=== PATIENT | female | born 1995 | race American Indian/Alaskan Native ===

== ENCOUNTER 2021-01-21 10:21 | Emergency (ER) | payer SELFPAY ==
[2021-01-21] MEDS ORDERED: ONDANSETRON 4 MG/2 ML INJ ONE (10:23)
[2021-01-21] MEDS ORDERED: SODIUM CHLORIDE 0.9% 1000 ML 1,000 ML IV ONE ×2 (10:23→14:03)
[2021-01-21] MEDS ORDERED: ONDANSETRON 4 MG/2 ML INJ IV ONE ×2 (10:24→14:02)
[2021-01-21] MEDS ORDERED: LORazepam 2 MG/ML VIAL IV ONE (10:32)
--- NOTE | 2021-01-21 10:36 | Emergency Department Report ---
HPI - General Time Seen by Provider: 01/21/21 10:22 - HPI HPI: 25-year-old -Iranian female presents to the emergency department via EMS from home after a suspected overdose and suicide attempt. Patient came home around 3 in the morning last night and told her mom that she "did not want to be here anymore." Mom did not think much about it at the time but the patient was found unresponsive this morning. There was an Altoids container that had small blue pills consistent with Percocet, but it is unknown how much of this medication she may have taken. Apparently there was also some Tylenol with codeine available. Initially the patient was completely unresponsive, GCS of 3, with respiratory depression. She received 1 mg of Narcan that initially helped with the respiratory depression and the patient became awake and agitated just prior to pulling up into the ambulance bay. At this time the patient is very emotional, having nausea with vomiting, complaining of ringing in the ears. Patient denies knowing what she ingested. I had a long conversation with the patient's mother. She does state that the patient came home around 3 AM and was saying that "I have failed this life" and "I do not want to be here anymore." Patient was very tearful. Mom says that the patient has not been doing well with the pandemic as she has not been able to hold down a job and lost her home and "she had to move back in with [facility]." Patient has made the same comments before about failing life and not wanting to be here anymore. She is supposed to see a psychiatrist or therapist on the due to this recent depression, but the patient has never been diagnosed with anything psychiatrically. Mom spoke with her niece, whom the patient went out with last night, and apparently the patient was given some type of mushrooms to ingest. I asked about the possibility of an overdose on Percocet but apparently the patient is allergic to Percocet as it causes hives. Mom had no idea what the small blue pills that EMS mentioned might have been. ED Review of Systems ROS: Stated complaint: OVERDOSE Other details as noted in HPI Comment: Unobtainable due to pts medical conditions ENT: other (ringing in ears) Gastrointestinal: nausea, vomiting Physical Exam - Physical Exam Physical Exam: GENERAL: The patient is ill-appearing and actively retching. HENT: Normocephalic. Atraumatic. Patient has moist mucous membranes. EYES: Extraocular motions are intact. NECK: Supple. Trachea is midline. CHEST/LUNGS: Clear to auscultation. There is no respiratory distress noted. HEART/CARDIOVASCULAR: Regular. There is mild to moderate tachycardia. There is no murmur. ABDOMEN: Abdomen is soft, nontender. Patient has normal bowel sounds. SKIN: Skin is warm and dry. NEURO: The patient is awake, but confused. Normal speech. MUSCULOSKELETAL: There is no tenderness or deformity. There is no limitation range of motion. ED Course - Reevaluation(s) Reevaluation #1: 01/21/21 16:00 After the patient had a dose of Ativan and was given time to calm down she appears improved and much more stable. She was also given antiemetics and the patient has stopped vomiting/retching. The patient is no longer agitated and yelling out. She does not appear to have any focal, motor or sensory deficits and her cranial nerves are intact. The patient admits that she ingested multiple Roxicodone as a suicide attempt. She denies what her mother had said about ingesting mushrooms and says that she may have had an edible. ED Medical Decision Making - Lab Data Result diagrams: 01/21/21 10:01/21/21 10: Lab Results 01/21/21 01/21/21 01/21/21 Range/Units 10: 10: 10:26 WBC 18.6 H (4.5-11.0) K/mm3 RBC 4.33 (3.65-5.03) M/mm3 Hgb 12.8 (10.1-14.3) gm/dl Hct 40.1 (30.3-42.9) % MCV 93 (79-97) fl MCH 30 (28-32) pg MCHC 32 (30-34) % RDW 14.3 (13.2-15.2) % Plt Count 399 (140-440) K/mm3 Lymph % (Auto) 20.7 (13.4-35.0) % [place] % (Auto) 5.7 (0.0-7.3) % Eos % (Auto) 0.5 (0.0-4.3) % Baso % (Auto) 0.3 (0.0-1.8) % Lymph # (Auto) 3.8 (1.2-5.4) K/mm3 [place] # (Auto) 1.1 H (0.0-0.8) K/mm3 Eos # (Auto) 0.1 (0.0-0.4) K/mm3 Baso # (Auto) 0.1 (0.0-0.1) K/mm3 Seg Neutrophils % 72.8 H (40.0-70.0) % Seg Neutrophils # 13.5 H (1.8-7.7) K/mm3 Sodium 141 (137-145) mmol/L Potassium 3.5 L (3.6-5.0) mmol/L Chloride 102.7 (98-107) mmol/L Carbon Dioxide 18 L (22-30) mmol/L Anion Gap 24 mmol/L BUN 10 (7-17) mg/dL Creatinine 1.1 (0.6-1.2) mg/dL Estimated GFR 60 ml/min BUN/Creatinine Ratio 9 % Glucose 73 (65-100) mg/dL Calcium 9.0 (8.4-10.2) mg/dL Total Bilirubin < 0.20 (0.1-1.2) mg/dL AST 25 (5-40) units/L ALT 26 (7-56) units/L Alkaline Phosphatase 72 (35-129) units/L Total Protein 7.5 (6.3-8.2) g/dL Albumin 4.4 (3.9-5) g/dL Albumin/Globulin Ratio 1.4 % HCG, Qual (Negative) Urine Color (Yellow) Urine Turbidity (Clear) Urine pH (5.0-7.0) Ur Specific [place] (1.003-1.030) Urine Protein (Negative) mg/dL Urine Glucose (UA) (Negative) mg/dL Urine Ketones (Negative) mg/dL Urine Blood (Negative) Urine Nitrite (Negative) Urine Bilirubin (Negative) Urine Urobilinogen (<2.0) mg/dL Ur Leukocyte Esterase (Negative) Urine WBC (Auto) (0.0-6.0) /HPF Urine RBC (Auto) (0.0-6.0) /HPF U Epithel Cells (Auto) (0-13.0) /HPF Salicylates < 0.3 L (2.8-20.0) mg/dL Urine Opiates Screen Urine Methadone Screen Acetaminophen (10.0-30.0) ug/mL Ur Barbiturates Screen Ur Phencyclidine Scrn Ur Amphetamines Screen U Benzodiazepines Scrn Urine Cocaine Screen U Marijuana (THC) Screen Plasma/Serum Alcohol (0-0.07) % 01/21/21 01/21/21 01/21/21 Range/Units 10:26 10:26 10:26 WBC (4.5-11.0) K/mm3 RBC (3.65-5.03) M/mm3 Hgb (10.1-14.3) gm/dl Hct (30.3-42.9) % MCV (79-97) fl MCH (28-32) pg MCHC (30-34) % RDW (13.2-15.2) % Plt Count (140-440) K/mm3 Lymph % (Auto) (13.4-35.0) % [place] % (Auto) (0.0-7.3) % Eos % (Auto) (0.0-4.3) % Baso % (Auto) (0.0-1.8) % Lymph # (Auto) (1.2-5.4) K/mm3 [place] # (Auto) (0.0-0.8) K/mm3 Eos # (Auto) (0.0-0.4) K/mm3 Baso # (Auto) (0.0-0.1) K/mm3 Seg Neutrophils % (40.0-70.0) % Seg Neutrophils # (1.8-7.7) K/mm3 Sodium (137-145) mmol/L Potassium (3.6-5.0) mmol/L Chloride (98-107) mmol/L Carbon Dioxide (22-30) mmol/L Anion Gap mmol/L BUN (7-17) mg/dL Creatinine (0.6-1.2) mg/dL Estimated GFR ml/min BUN/Creatinine Ratio % Glucose (65-100) mg/dL Calcium (8.4-10.2) mg/dL Total Bilirubin (0.1-1.2) mg/dL AST (5-40) units/L ALT (7-56) units/L Alkaline Phosphatase (35-129) units/L Total Protein (6.3-8.2) g/dL Albumin (3.9-5) g/dL Albumin/Globulin Ratio % HCG, Qual Negative (Negative) Urine Color (Yellow) Urine Turbidity (Clear) Urine pH (5.0-7.0) Ur Specific [place] (1.003-1.030) Urine Protein (Negative) mg/dL Urine Glucose (UA) (Negative) mg/dL Urine Ketones (Negative) mg/dL Urine Blood (Negative) Urine Nitrite (Negative) Urine Bilirubin (Negative) Urine Urobilinogen (<2.0) mg/dL Ur Leukocyte Esterase (Negative) Urine WBC (Auto) (0.0-6.0) /HPF Urine RBC (Auto) (0.0-6.0) /HPF U Epithel Cells (Auto) (0-13.0) /HPF Salicylates (2.8-20.0) mg/dL Urine Opiates Screen Urine Methadone Screen Acetaminophen 6.5 L (10.0-30.0) ug/mL Ur Barbiturates Screen Ur Phencyclidine Scrn Ur Amphetamines Screen U Benzodiazepines Scrn Urine Cocaine Screen U Marijuana (THC) Screen Plasma/Serum Alcohol 0.12 H (0-0.07) % 01/21/21 01/21/21 Range/Units Unknown Unknown WBC (4.5-11.0) K/mm3 RBC (3.65-5.03) M/mm3 Hgb (10.1-14.3) gm/dl Hct (30.3-42.9) % MCV (79-97) fl MCH (28-32) pg MCHC (30-34) % RDW (13.2-15.2) % Plt Count (140-440) K/mm3 Lymph % (Auto) (13.4-35.0) % [place] % (Auto) (0.0-7.3) % Eos % (Auto) (0.0-4.3) % Baso % (Auto) (0.0-1.8) % Lymph # (Auto) (1.2-5.4) K/mm3 [place] # (Auto) (0.0-0.8) K/mm3 Eos # (Auto) (0.0-0.4) K/mm3 Baso # (Auto) (0.0-0.1) K/mm3 Seg Neutrophils % (40.0-70.0) % Seg Neutrophils # (1.8-7.7) K/mm3 Sodium (137-145) mmol/L Potassium (3.6-5.0) mmol/L Chloride (98-107) mmol/L Carbon Dioxide (22-30) mmol/L Anion Gap mmol/L BUN (7-17) mg/dL Creatinine (0.6-1.2) mg/dL Estimated GFR ml/min BUN/Creatinine Ratio % Glucose (65-100) mg/dL Calcium (8.4-10.2) mg/dL Total Bilirubin (0.1-1.2) mg/dL AST (5-40) units/L ALT (7-56) units/L Alkaline Phosphatase (35-129) units/L Total Protein (6.3-8.2) g/dL Albumin (3.9-5) g/dL Albumin/Globulin Ratio % HCG, Qual (Negative) Urine Color Yellow (Yellow) Urine Turbidity Clear (Clear) Urine pH 5.0 (5.0-7.0) Ur Specific [place] 1.015 (1.003-1.030) Urine Protein <15 mg/dl (Negative) mg/dL Urine Glucose (UA) Neg (Negative) mg/dL Urine Ketones Tr (Negative) mg/dL Urine Blood Lg (Negative) Urine Nitrite Neg (Negative) Urine Bilirubin Neg (Negative) Urine Urobilinogen < 2.0 (<2.0) mg/dL Ur Leukocyte Esterase Neg (Negative) Urine WBC (Auto) 1.0 (0.0-6.0) /HPF Urine RBC (Auto) 1.0 (0.0-6.0) /HPF U Epithel Cells (Auto) 1.0 (0-13.0) /HPF Salicylates (2.8-20.0) mg/dL Urine Opiates Screen Negative Urine Methadone Screen Negative Acetaminophen (10.0-30.0) ug/mL Ur Barbiturates Screen Negative Ur Phencyclidine Scrn Negative Ur Amphetamines Screen Negative U Benzodiazepines Scrn Negative Urine Cocaine Screen Negative U Marijuana (THC) Screen Negative Plasma/Serum Alcohol (0-0.07) % - Medical Decision Making Patient initially presented as a possible OD. Initially she did not have response to Narcan but became awake, but confused and agitated upon arrival to the emergency department. The patient was also actively retching. Patient was given some Ativan and antiemetics. She was given some IV fluid resuscitation. The patient became much more awake, alert, oriented. She does admit to suicidal ideations and an attempt and therefore the patient was made an ED hold and placed on a 1013. Patient's labs have been mostly unremarkable except for a mild leukocytosis of 18,000. No source of infection seen at this time. Surprisingly UDS negative for marijuana and opiates. The patient initially had some tachycardia but that has since resolved with resolution of the patient's agitation and some IV fluid resuscitation. The patient has a urinary tract infection she may need antibiotics, but otherwise the patient is medically clear ed for psychiatric placement. Critical Care Time: No Critical care attestation.: If time is entered above; I have spent that time in minutes in the direct care of this critically ill patient, excluding procedure time. ED Disposition Clinical Impression: Suicidal ideations Suicide attempt by substance overdose Qualifiers: Encounter type: initial encounter Qualified Code(s): T65.92XA - Toxic effect of unspecified substance, intentional self-harm, initial encounter Opiate overdose Qualifiers: Encounter type: initial encounter Injury intent: intentional self-harm Qualified Code(s): T40.602A - Poisoning by unspecified narcotics, intentional self-harm, initial encounter Disposition: [address] [place] [address] HOSPITAL Is pt being admited?: No Referrals: PRIMARY CARE, [Primary Care Provider] - 3-5 Days Time of Disposition: 16:04
[2021-01-21 10:51] LABS: Basophils # (Auto) 0.1 K/mm3 (0.0-0.1); Basophils % (Auto) 0.3 % (0.0-1.8); Eosinophils # (Auto) 0.1 K/mm3 (0.0-0.4); Eosinophils % (Auto) 0.5 % (0.0-4.3); Hemoglobin 12.8 gm/dl (10.1-14.3); Lymphocytes # (Auto) 3.8 K/mm3 (1.2-5.4); Lymphocytes % (Auto) 20.7 % (13.4-35.0); Monocytes # (Auto) 1.1 K/mm3 (0.0-0.8); Monocytes % (Auto) 5.7 % (0.0-7.3)
[2021-01-21 11:14] LABS: Alanine Aminotransferase 26 units/L (7-56); Albumin 4.4 g/dL (3.9-5); BUN/Creatinine Ratio 9; Blood Urea Nitrogen 10 mg/dL (7-17); Hemolysis Index 10
[2021-01-21 11:20] LABS: Hematocrit 40.1 % (30.3-42.9); Mean Corpuscular HGB Conc 32 % (30-34); Mean Corpuscular Volume 93 fl (79-97); Platelet Count 399 K/mm3 (140-440); Red Blood Count 4.33 M/mm3 (3.65-5.03); Red Cell Distribution Width 14.3 % (13.2-15.2)
[2021-01-21] MEDS ORDERED: LORazepam 2 MG/ML VIAL IV NR (14:00)
[2021-01-21 15:52] LABS: Bilirubin,Urine NEG (Negative); Blood,Urine LG (Negative); Color,Urine Yellow (Yellow); Protein,Urine <15 mg/dL mg/dL (Negative); Urobilinogen,Urine < 2.0 mg/dL (<2.0)
[2021-01-21 16:00] LABS: Amphetamine Screen,Urine Negative; Benzodiazepines Screen,Urine Negative; Cannabinoid Screen,Urine Negative; Cocaine Screen,Urine Negative; Methadone Screen,Urine Negative; Opiate Screen,Urine Negative
[2021-01-21 19:37] LABS: Hematocrit 35.3 % (30.3-42.9); Hemoglobin 11.4 gm/dl (10.1-14.3); Mean Corpuscular HGB Conc 32 % (30-34); Mean Corpuscular Volume 92 fl (79-97); Platelet Count 319 K/mm3 (140-440); Red Blood Count 3.85 M/mm3 (3.65-5.03); Red Cell Distribution Width 14.1 % (13.2-15.2)
--- NOTE | 2021-01-22 10:26 | Electrocardiograph Report ---
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
--- NOTE | 2021-01-22 10:39 | Consultation ---
History of Present Illness - Reason for Consult Consult date: 01/22/21 Reason for consult: OD - History of Present Psychiatric Illness Diann Stallings is a 25y/o female patient who states she was brought to the hospital because "my mom states I was unresponsive." When asking why was she unresponsive, the patient replies "I took a bunch of pills. I didn't want to feel anything." She is calm, cooperative. She is soft spoken and makes poor eye contact. The patient says "I took the pills cause I feel defeated. Nothing is working out for me." She says she hasn't slept in days. She denies hallucinations of any kind. She denies any illicit drug use or alcohol but states she smokes a pack of cigarets daily. The patient denies being on any meds or seeing a psychiatrist. PAST PSYCHIATRIC HISTORY: Diagnoses: Denies Suicide attempts or Self-harm behavior: once Prior psychiatric hospitalizations: Denies Substance Abuse history: Denies Previous psychiatric medications tried: Denies Outpatient treatment: Denies PAST MEDICAL HISTORY: None reported or document Family Psychiatric History: None reported or documented SOCIAL HISTORY Marital Status: Single Living Arrangements: Lives with mother Employment Status: Employed Access to guns/weapons: Denies Education: high school diploma History of Abuse: Denies Legal History: Denies REVIEW OF SYSTEMS Constitutional: Negative for weight loss ENT: Negative for stridor Respiratory: Negative for cough or hemoptysis All other systems reviewed and are negative MENTAL STATUS EXAMINATION General Appearance and Behavior: Age appropriate, good hygiene, wearing appropriate clothes. calm, poor eye contact Cooperation: cooperative Psychomotor Behavior: Psychomotor normal Mood: Depressed Affect and affective range: congruent with stated mood Thought Process: goal directed Thought Content: None Speech: Normal volume, Regular rate and rhythm, Suicidal Ideation: Yes Homicidal Ideation: Denies Hallucinations: Denies Delusions: None elicited Impulse Control: Impaired Insight and Judgment: Poor Memory: normal Attention: attentive Orientation: alert and oriented Assessment and Plan (1) Major Depressive Disorder Current Visit: Yes Status: Acute Treatment Plan 1013 Lexapro 5mg po daily Nicotine patch 21mg daily Sitter: per primary Medical: per primary Disposition: Recommend acute psychiatric inpatient treatment Will follow. Thanks Case staffed with Dr. Kam Medications and Allergies Allergies Allergy/AdvReac Type Severity Reaction Status Date / Time acetaminophen [From Percocet] Allergy Hives Verified 01/21/21 13:37 oxycodone [From Percocet] Allergy Hives Verified 01/21/21 13:37 Mental Status Exam - Vital signs Last Vital Signs Temp 98.5 F 01/22/21 10:00 Pulse 111 H 01/22/21 10:00 Resp 18 01/22/21 10:00 BP 118/88 01/22/21 10:00 Pulse Ox 96 01/22/21 10:00 Results Result Diagrams: 01/21/21 19:08 01/21/21 10:26 Abnormal lab results 01/21/21 01/21/21 01/21/21 Range/Units 10: 10:26 10:26 WBC 18.6 H (4.5-11.0) K/mm3 [place] # (Auto) 1.1 H (0.0-0.8) K/mm3 Seg Neutrophils % 72.8 H (40.0-70.0) % Seg Neutrophils # 13.5 H (1.8-7.7) K/mm3 Potassium 3.5 L (3.6-5.0) mmol/L Carbon Dioxide 18 L (22-30) mmol/L Salicylates < 0.3 L (2.8-20.0) mg/dL Acetaminophen (10.0-30.0) ug/mL Plasma/Serum Alcohol (0-0.07) % 01/21/21 01/21/21 Range/Units 10:26 10:26 WBC (4.5-11.0) K/mm3 [place] # (Auto) (0.0-0.8) K/mm3 Seg Neutrophils % (40.0-70.0) % Seg Neutrophils # (1.8-7.7) K/mm3 Potassium (3.6-5.0) mmol/L Carbon Dioxide (22-30) mmol/L Salicylates (2.8-20.0) mg/dL Acetaminophen 6.5 L (10.0-30.0) ug/mL Plasma/Serum Alcohol 0.12 H (0-0.07) % All other labs normal.
[2021-01-22] MEDS ORDERED: ESCITALOPRAM 10 MG TAB PO SCH (11:00)
[2021-01-22] MEDS ORDERED: SERTRALINE 25 MG TAB PO SCH (11:00)
[2021-01-22] MEDS: NICOTINE 21 MG/24 HR PATCH TD SCH (11:03)
--- NOTE | 2021-01-22 11:43 | Emergency Department Report ---
Blank Doc - Documentation Documentation: I initially saw this patient yesterday for an overdose on opiates that was a s uicidal attempt. The patient was made a 1013 and placed on ED hold. She was medically cleared by me. No events overnight. She was seen by the psychiatric nurse practitioner who agrees that the patient requires inpatient stabilization. The patient has been started on Lexapro and trazodone. No other medications for reconciliation. Vital signs reassuring. We will continue to monitor during her ED course.
[2021-01-22] MEDS ORDERED: POTASSIUM CHLORIDE ER 20 MEQ TAB PO ONE (20:58)
[2021-01-22] MEDS ORDERED: traZODone 50 MG TAB PO SCH (22:00)
[2021-01-23 08:15] VITALS: BP 121/85
--- NOTE | 2021-01-23 09:32 | Progress Note ---
Subjective - Reason for Consult Consult date: 01/23/21 Reason for consult: OD - Chief Complaint Chief complaint: The patient was seen today. She is soft spoken and makes fair eye contact. She says she was drinking and tripping yesterday. She denies SI/HI, but endorses feeling depressed and states that's when she starts feeling suicidal. REVIEW OF SYSTEMS Constitutional: Negative for weight loss ENT: Negative for stridor Respiratory: Negative for cough or hemoptysis All other systems reviewed and are negative MENTAL STATUS EXAMINATION General Appearance and Behavior: Age appropriate, good hygiene, wearing appropriate clothes. calm, poor eye contact Cooperation: cooperative Psychomotor Behavior: Psychomotor normal Mood: Depressed Affect and affective range: congruent with stated mood Thought Process: goal directed Thought Content: None Speech: Normal volume, Regular rate and rhythm, Suicidal Ideation: Yes Homicidal Ideation: Denies Hallucinations: Denies Delusions: None elicited Impulse Control: Impaired Insight and Judgment: Poor Memory: normal Attention: attentive Orientation: alert and oriented Assessment and Plan (1) Major Depressive Disorder Current Visit: Yes Status: Acute Treatment Plan 1013 Increase Lexapro 10mg po daily Sitter: per primary Medical: per primary Disposition: Recommend acute psychiatric inpatient treatment Will follow. Thanks Case staffed with Dr. Kam Mental Status Exam - Vital signs Last Vital Signs Temp 98.3 F 01/23/21 08:14 Pulse 70 01/23/21 08:14 Resp 18 01/23/21 08:14 BP 121/85 01/23/21 08:14 Pulse Ox 100 01/23/21 08:14
[2021-01-23] MEDS: NICOTINE 21 MG/24 HR PATCH TD SCH (09:57)
[2021-01-23] MEDS ORDERED: ESCITALOPRAM 10 MG TAB PO SCH (10:00)
--- NOTE | 2021-01-23 12:33 | Event Note ---
Date: 01/23/21 S: Patient has no complaints. O: No overnight events. Patient is calm and cooperative. Vital signs stable. A: Major depressive disorder P: Continue 1013, awaiting psychiatric placement
== END 2021-01-23 17:06 ==
LOC: EEVIPCON 10:21 → ED 10:21
DX: T40.602A Poisoning by unspecified narcotics, intentional self-harm, initial encounter (principal); T14.91XA Suicide attempt, initial encounter; Z20.822 Contact with and (suspected) exposure to COVID-19; Y92.098 Other place in other non-institutional residence as the place of occurrence of the external cause; Y93.89 Activity, other specified; Y99.8 Other external cause status
CPT/HCPCS: 36415; 80053; 80307; 81001; 84703; 85025; 85027; 93005; 96361; 96374; 96375; 96376; 99285; J2060; J2405; J7030; U0003; 80320; G0480